=== PATIENT | female | born 1965 | race Caucasian/White ===

== ENCOUNTER 2023-01-28 12:47 | Outpatient (REF) | payer MEDICAID, SELFPAY ==
[2023-01-28 17:07] LABS: COMMENT (LAB VIEW ONLY) 108.41 mg/dL; Microalb ug/mg Crea 6.4 ug/mg Cr
== END 2023-01-28 12:48 | disposition home or self-care (01) ==
LOC: NCHCN 12:47
PROVIDERS: Visit Provider Family Medicine
DX: E11.9 Type 2 diabetes mellitus without complications (principal)
CPT/HCPCS: 82043; 82570